=== PATIENT | male | born 1935 | race Caucasian/White ===

== ENCOUNTER 2020-08-03 11:05 | Emergency (ER) | payer OTHER, MEDICARE ==
[2020-08-03] MEDS ORDERED: Sodium Chloride 0.9% 2.5 ML Syringe FLUSH PRN (12:01)
[2020-08-03] MEDS ORDERED: Sodium Chloride 0.9% 10 ML Syringe FLUSH PRN (12:01)
--- NOTE | 2020-08-03 12:19 | EDM.PDOC ---
ED HPI GENERAL MEDICAL PROBLEM - General Chief Complaint: General Stated Complaint: CONFUSED Time Seen by Provider: 08/03/20 11:07 - History of Present Illness INITIAL COMMENTS - FREE TEXT/NARRATIVE: Patient is an 85-year-old male who lives alone relatively nearby is presenting with his son with concern for confusion. The patient lives alone and gets most of his health care through the [place]. He has some mild forgetfulness but nothing that prevents him from living on his own. His son typically calls him most days and the day before yesterday they were unable to get a hold of him. They contacted a neighbor who was able to see the patient was concerned about confusion. The son drove up from [employer] and notes that his father is significantly more confused than normal doing things like using his cell phone to try and control the TV, continuing cell phone conversations after they have ended, not recognizing places or situations. He forgot to turn the water off in the kitchen similar things. The patient tends to do well in the morning and struggles much more after the sun sets. The son has not seen mental status changes like this with this degree of confusion from him in the past. He is was given a prescription for amoxicillin for his teeth. He states that his teeth do not especially hurt but he knows he has 2 severe cavities that need to be fixed. The patient himself states that he feels pretty well. He does not feel particularly confused. He denies any symptoms exacerbating or alleviating factors or radiation. He does not have any chronic medical problems takes no chronic medications has no known allergies. - Related Data Allergies Allergy/AdvReac Type Severity Reaction Status Date / Time No Known Allergies Allergy Verified 08/03/20 11:49 Home Meds: Home Meds . [No Known Home Meds] 08/03/20 [History] Past Medical History HEENT History: Reports: Allergic Rhinitis, Impaired Vision Cardiovascular History: Reports: Heart Murmur Gastrointestinal History: Reports: Diverticulosis Musculoskeletal History: Reports: Neck Pain, Chronic, RA Dermatologic History: Reports: Other (See Below) Other Dermatologic History: lipoma - Past Surgical History HEENT Surgical History: Reports: Cataract Surgery GI Surgical History: Reports: Appendectomy, Cholecystectomy, Colonoscopy Social & Family History - Tobacco Use Tobacco Use Status *Q: Never Tobacco User - Recreational Drug Use Recreational Drug Use: No ED ROS GENERAL - Review of Systems Review Of Systems: See Below Free Text/Narrative/Comment: General: No fever. Skin: No rash. Eyes: No vision problems. ENT: No sore throat. Neck: No neck stiffness. Respiratory: No shortness of breath. Cardiac: No chest pain. Gastrointestinal: No nausea, vomiting or abdominal pain. Urinary: No dysuria. Musculoskeletal: No myalgias/arthralgias. Neurologic: No headache. ED EXAM, GENERAL - Physical Exam Exam: See Below Free Text/Narrative:: General Appearance: No acute distress, appears comfortable Skin: No rash HEENT: Normocephalic/atraumatic, sclera anicteric, mucous membranes moist Neck: Normal range of motion Chest and Lungs: Bilateral breath sounds, clear to auscultation Cardiovascular: Regular rate and rhythm, no murmur Abdomen: Soft, non-tender Back: Normal Musculoskeletal: No edema or tenderness Neurologic: Awake, alert, no obvious deficits, moving all extremities, cranial nerves III through XI intact bilaterally normal [id number] bilaterally strength intact in bilateral upper and lower extremities Psychiatric: Appropriate, cooperative Course - Vital Signs Last Recorded V/S: Last Vital Signs Temp 98.9 F 08/03/20 11:50 Pulse 65 08/03/20 14:08 Resp 16 08/03/20 14:08 BP 99/66 08/03/20 14:08 Pulse Ox 95 08/03/20 14:08 - Orders/Labs/Meds Orders: Active Orders 24 hr Category Date Time Status EKG 12 Lead [EKG Documentation Completion] [RC] STAT Care 08/03/20 13:11 Active UA W/MICROSCOPIC [URIN] Stat Lab 08/03/20 12:13 Ordered Sodium Chloride 0.9% [Saline Flush] Med 08/03/20 12:01 Active 10 ml FLUSH ASDIRECTED PRN Sodium Chloride 0.9% [Saline Flush] Med 08/03/20 12:01 Active 2.5 ml FLUSH ASDIRECTED PRN Saline Lock Insert [OM.PC] Stat Oth 08/03/20 12:01 Ordered Medication Orders Sodium Chloride (Saline Flush) 10 ml FLUSH ASDIRECTED PRN PRN Reason: Keep Vein Open Last Admin: 08/03/20 13:13 Dose: 10 ml Documented by: CARO Sodium Chloride (Saline Flush) 2.5 ml FLUSH ASDIRECTED PRN PRN Reason: Keep Vein Open Last Admin: 08/03/20 13:12 Dose: 2.5 ml Documented by: CARO Labs: Laboratory Tests 08/03/20 08/03/20 08/03/20 Range/Units 12:17 12:17 12:17 WBC 3.48 L (4.0-11.0) K/uL RBC 4.07 L (4.50-5.90) M/uL Hgb 12.3 L (13.0-17.0) g/dL Hct 37.5 L (38.0-50.0) % MCV 92.1 (80.0-98.0) fL MCH 30.2 (27.0-32.0) pg MCHC 32.8 (31.0-37.0) g/dL RDW Std Deviation 44.1 (28.0-62.0) fl RDW Coeff of [place] 13 (11.0-15.0) % Plt Count 135 L (150-400) K/uL MPV 9.90 (7.40-12.00) fL Neut % (Auto) 62.6 (48.0-80.0) % Lymph % (Auto) 25.0 (16.0-40.0) % [place] % (Auto) 12.4 (0.0-15.0) % Eos % (Auto) 0.0 (0.0-7.0) % Baso % (Auto) 0.0 (0.0-1.5) % Neut # (Auto) 2.2 (1.4-5.7) K/uL Lymph # (Auto) 0.9 (0.6-2.4) K/uL [place] # (Auto) 0.4 (0.0-0.8) K/uL Eos # (Auto) 0.0 (0.0-0.7) K/uL Baso # (Auto) 0.0 (0.0-0.1) K/uL Nucleated RBC % 0.0 /100WBC Nucleated RBCs # 0 K/uL Sodium 136 (136-148) mmol/L Potassium 4.1 (3.5-5.1) mmol/L Chloride 104 (98-107) mmol/L Carbon Dioxide 23.6 (21.0-32.0) mmol/L BUN 42 H (7.0-18.0) mg/dL Creatinine 1.5 H (0.8-1.3) mg/dL Est Cr Clr Drug Dosing 31.31 mL/min Estimated GFR (MDRD) 44.3 ml/min Glucose 110 H (74-106) mg/dL Calcium 8.7 (8.5-10.1) mg/dL Total Bilirubin 0.6 (0.2-1.0) mg/dL AST 28 (15-37) IU/L ALT 20 (14-63) IU/L Alkaline Phosphatase 63 (46-116) U/L Troponin I 0.075 H* (0.000-0.056) ng/mL Total Protein 7.3 (6.4-8.2) g/dL Albumin 3.6 (3.4-5.0) g/dL Globulin 3.7 (2.6-4.0) g/dL Albumin/Globulin Ratio 1.0 (0.9-1.6) Meds: Medications Generic Name Dose Route Start Last Admin Trade Name Freq PRN Reason Stop Dose Admin Sodium Chloride 10 ml 08/03/20 12:01 08/03/20 13:13 Saline Flush FLUSH 10 ml ASDIRECTED PRN Administration Keep Vein Open Sodium Chloride 2.5 ml 08/03/20 12:01 08/03/20 13:12 Saline Flush FLUSH 2.5 ml ASDIRECTED PRN Administration Keep Vein Open Discontinued Medications Generic Name Dose Route Start Last Admin Trade Name Freq PRN Reason Stop Dose Admin Aspirin 324 mg 08/03/20 14:22 08/03/20 14:27 Aspirin PO 08/03/20 14:23 324 mg ONETIME ONE Administration Departure - Departure Time of Disposition: 14:25 Disposition: DC/Tfer to Acute Hospital 02 Condition: Fair Clinical Impression: AMS (altered mental status), Elevated troponin, Acute kidney injury - Discharge Information *PRESCRIPTION DRUG MONITORING PROGRAM REVIEWED*: Not Applicable *COPY OF PRESCRIPTION DRUG MONITORING REPORT IN PATIENT LISY: Not Applicable Referrals: [facility] [Primary Care Provider] - Forms: ED Department Discharge Sepsis Event Note (ED) - Evaluation Sepsis Screening Result: No Definite Risk - Focused Exam Vital Signs: Vital Signs Temp Pulse Resp BP Pulse Ox 08/03/20 14:08 65 16 99/66 95 08/03/20 11:50 98.9 F 77 16 115/68 99 - My Orders Last 24 Hours: My Active Orders 08/03/20 12:01 Sodium Chloride 0.9% [Saline Flush] 10 ml FLUSH ASDIRECTED PRN Sodium Chloride 0.9% [Saline Flush] 2.5 ml FLUSH ASDIRECTED PRN Saline Lock Insert [OM.PC] Stat 08/03/20 12:13 UA W/MICROSCOPIC [URIN] Stat 08/03/20 13:11 EKG 12 Lead [EKG Documentation Completion] [RC] STAT - Assessment/Plan Last 24 Hours: My Active Orders 08/03/20 12:01 Sodium Chloride 0.9% [Saline Flush] 10 ml FLUSH ASDIRECTED PRN Sodium Chloride 0.9% [Saline Flush] 2.5 ml FLUSH ASDIRECTED PRN Saline Lock Insert [OM.PC] Stat 08/03/20 12:13 UA W/MICROSCOPIC [URIN] Stat 08/03/20 13:11 EKG 12 Lead [EKG Documentation Completion] [RC] STAT Assessment:: 85-year-old male presenting with confusion and altered mental status. The pattern sounds like sundowning the patient's overall well presentation and the fact that this is overlaid on a background of some degree of forgetfulness makes me suspect dementia. However multiple other etiologies considered as well. CT scan of the brain ordered to exclude acute stroke or other acute intracranial process no concern for meningitis or encephalitis. EKG and troponin ordered to exclude primary cardiac process without chest pain or shortness of breath or reports of syncope with tachycardia I think this is very unlikely. CBC CMP and urinalysis as well as chest x-ray to assess for any occult infective process. Think this is very unlikely. His dental exam does not reveal any dental abscess there is no trismus there is no submental or sublingual swelling no sign of RPA. If evaluation is without acute cause will discuss disposition with patient and his family. 1411: On reassessment at this time patient continues to state that he feels well. CT scan of the brain is unremarkable chest x-ray unremarkable blood work is notable for a minimal renal insufficiency unknown if this is acute or chronic. Patient's troponin also very minimally abnormal at 0.075. This could be related to his renal insufficiency or could reflect a primary cardiac event. Patient has no history of chest pain shortness of breath or any other symptoms. His EKG does not have any ischemic changes on it. I do think the patient requires admission for hydration and serial lab assessment and additional evaluation. We will discuss with the hospitalist whether we can keep the patient here or if we will need to transfer him to another facility. 1422: Pt discussed in full with Dr. Oreilly. Given patient's +troponin and delirium he is felt to require more resources and testing than we can accomplish at this facility. He recommends transfer to a higher level of care. Will discuss with [facility]. 1424: Pt discussed with Dr. Estrella and patient has been accepted for transfer to [facility]. Pt is felt stable for ground transport. ASA ordered.
--- NOTE | 2020-08-03 12:54 | CR ---
INDICATION: Evaluate for infiltrate COMPARISON: None TECHNIQUE: PA and lateral views of the chest were acquired FINDINGS: TUBES AND LINES: None. HEART AND MEDIASTINUM: Heart size normal. Tortuous thoracic aorta.. LUNGS AND PLEURAL SPACES: The lungs appear normal.The pleural spaces are unremarkable. OSSEOUS STRUCTURES: Degenerative changes. Questionable lytic lucency in the anterior aspect of a lower thoracic vertebral body. Anterior cortex may be eroded. Follow-up evaluation by CT or MRI should be considered at a clinically appropriate time IMPRESSION: 1. No evidence of active pulmonary disease. 2. Possible lesion involving a lower thoracic vertebral body for which follow-up evaluation is recommended at a clinically appropriate time Dictated by Sukh Barrera MD @ Aug 03 2020 12:49PM Signed by Dr. Sukh Barrera @ Aug 03 2020 12:51PM
--- NOTE | 2020-08-03 12:58 | CT ---
INDICATION: Acute mental status changes. Confusion. TECHNIQUE: CT head without IV contrast. COMPARISON: CT head 08/27/2019. FINDINGS: Postprocedural changes both eyes stable. Moderate vascular calcifications. Displaced stable old right lateral nasal bone fracture. Benign calcifications along the falx stable. Mild to moderate cerebral and cerebellar atrophy stable. Areas of nodular benign density in the posterior upper scalp stable. Patchy mild to moderate small vessel ischemic disease stable. Third ventricle is mildly prominent and stable which should be a chronic finding. Remainder negative. IMPRESSION: 1. No acute intracranial disease. 2. Stable chronic intracranial findings. 3. Stable old right lateral nasal bone fracture. Please note that all CT scans at this facility use dose modulation, iterative reconstruction, and/or weight-based dosing when appropriate to reduce radiation dose to as low as reasonably achievable. Dictated by Kishore Contreras MD @ Aug 03 2020 12:50PM Signed by Dr. Kishore Contreras @ Aug 03 2020 12:56PM
[2020-08-03 12:59] LABS: CARBON DIOXIDE,CO2 23.6 mmol/L (21.0-32.0); POTASSIUM,K 4.1 mmol/L (3.5-5.1)
[2020-08-03] MEDS ORDERED: Aspirin 81 MG Tab.Chew PO ONE (14:22)
== END 2020-08-03 15:28 ==
LOC: MW.ED 11:05
DX: N17.9 Acute kidney failure, unspecified (principal); R41.82 Altered mental status, unspecified; R79.89 Other specified abnormal findings of blood chemistry
CPT/HCPCS: 36415; 70450; 71046; 80053; 84484; 85025; 93005; 99285; A9270; 93010; 99283